=== PATIENT | female | born 1945 | race Caucasian/White ===

== ENCOUNTER 2019-12-18 14:27 | Inpatient (IN) | payer MEDICARE, OTHER ==
[~2019-12-18] VITALS: Ht 134.6 cm; Wt 65.8 kg
--- NOTE | 2019-12-18 14:40 | NUR ---
Pt BIB private EMS from [facility], reports Pt has SI (plan to OD or run into traffic); pt was negative Covid swab yesterday, c/o cough but did not cough at other hospital. Pt has SI (OD, traffic, or cut her wrists) but denies HI, AH and VH. Pt also c/o periumbilical ABD pain w/nausea, migraine PELAEZ, CP, cough and SOB, no distress noted.
--- NOTE | 2019-12-18 15:07 | NUR ---
Art on his way to do PET eval.
[2019-12-18] MEDS ORDERED: LEVO25TA9 PO (15:15)
[2019-12-18] MEDS ORDERED: HALO5TAB PO (15:15)
[2019-12-18] MEDS ORDERED: BUDE10.2 INH (15:15)
[2019-12-18] MEDS ORDERED: POLY15DR27 EACHEYE (15:15)
[2019-12-18] MEDS ORDERED: ALBU18HF2 INH (15:15)
[2019-12-18] MEDS ORDERED: CHOL4PAC3 PO (15:15)
[2019-12-18] MEDS ORDERED: DIPH25CA83 PO (15:15)
[2019-12-18] MEDS ORDERED: DILT180C90 PO (15:15)
[2019-12-18] MEDS ORDERED: diphenhydrAMINE 25 MG CAP PO ONE ×2 (16:45)
--- NOTE | 2019-12-18 18:48 | NUR ---
Admitting Notes: Admitting this 74 Y female patient appears to be anxious and verbalizes shes not feeling well and would start to cry, patient cooperative and calm, assisted to her room VS Bp 161/104 P93 T 97, patients weigh 141 lbs, endorsed to next shift for the admission
--- NOTE | 2019-12-18 20:10 | NUR ---
Received patient in bed. AAO x3. No acute distress or SOB was noted. Calm and cooperative. Pleasant upon approach. Compliant with medication. No SI at this time, but she had suicidal plan in the past. No behavioral issues. Mood depressed. She feels hopelessness. Safety measures and suicidal precaution maintained. Bed in low and locked position. Room free from clutters. Continue to monitor.
[2019-12-18 20:32] VITALS: BP 137/94
[2019-12-18] MEDS: LORAZEPAM 0.5 MG TABLET PO PRN (21:05)
[2019-12-18] MEDS: MAGNESIUM HYDROXIDE 30 ML LIQUID UDC PO PRN (21:05)
--- NOTE | 2019-12-18 21:15 | NUR ---
Patient felt anxiety. Ativan 0.5 mg was administered and well tolerated. Continue to monitoe.
[2019-12-18] MEDS: ZOLPIDEM 5 MG TABLET PO PRN (22:03)
[2019-12-18] MEDS ORDERED: POLYVINYL ALCOHOL OPHT DROPS 15 ML BOTTLE EACHEYE SCH (22:15)
[2019-12-18] MEDS ORDERED: ALBUTEROL SULFATE 8 GM HFA.AER.AD INH SCH (22:15)
--- NOTE | 2019-12-18 22:15 | NUR ---
Patient complained of insomnia. Ambien 5 mg was given and well tolerated. Continue to monitor.
[2019-12-19 06:51] LABS: *BILIRUBIN,URIN NEGATIVE (NEGATIVE); *BLOOD, URINE NEGATIVE (NEGATIVE); *CLARITY,URINE CLEAR (CLEAR); *COLOR,URINE YELLOW (YELLOW); *KETONES,URINE NEGATIVE (NEGATIVE); *UROBILINOGEN,URINE 0.2 E.U./dl (NORMAL); LEUKOCYTE ESTERASE ,URINE TRACE (NEGATIVE); NITRITE, URINE NEGATIVE (NEGATIVE); PH,URINE 7.5 (5.0-8.0); UGLUCOSE NEGATIVE (NEGATIVE)
[2019-12-19 07:19] LABS: BACTERIA,URINE FEW /HPF (NONE SEEN); SQUAMOUS EPITHELIAL CELL,UR MANY /HPF (NONE SEEN)
[2019-12-19 07:23] LABS: MUCUS,URINE NONE SEEN /LPF (0-FEW); RBC,URINE NONE SEEN /HPF (0-3)
[2019-12-19 07:30] VITALS: BP 140/99
[2019-12-19] MEDS ORDERED: ALBUTEROL SULFATE 8 GM HFA.AER.AD INH SCH (07:30)
[2019-12-19 07:39] LABS: BASOPHILS # (AUTO) 0.1 K/uL (0.0-8.0); BASOPHILS % (AUTO) 1.3 % (0.0-2.0); EOSINOPHILS # (AUTO) 0.3 K/uL (0.0-0.7); EOSINOPHILS % (AUTO) 3.8 % (0.0-7.0); HEMATOCRIT 38.9 % (31.2-41.9); HEMOGLOBIN 12.7 g/dL (10.9-14.3); LYMPHOCYTES # (AUTO) 2.4 K/uL (20.0-40.0); LYMPHOCYTES % (AUTO) 30.3 % (20.5-51.5); MEAN CORPUSCULAR HEMOGLOBIN 25.6 uug (24.7-32.8); MEAN CORPUSCULAR HGB CONC 33 g/dL (32.3-35.6); MEAN CORPUSCULAR VOLUME 78.1 fL (75.5-95.3); MONOCYTES # (AUTO) 0.7 K/uL (2.0-10.0); MONOCYTES % (AUTO) 9.4 % (0.0-11.0); NEUTROPHILS # (AUTO) 4.4 K/uL (1.8-8.9); NEUTROPHILS % (AUTO) 55.2 % (38.5-71.5); PLATELET COUNT (AUTO) 521 K/uL (179-408); RED BLOOD CELL COUNT(AUTO) 4.98 MIL/uL (3.63-4.92); WHITE BLOOD COUNT (AUTO) 7.9 K/uL (3.8-11.8)
[2019-12-19] MEDS: FLUTICASONE/VILANTEROL 1 EACH BLST.W.DEV INH SCH (07:55)
[2019-12-19] MEDS: LEVOTHYROXINE SODIUM 25 MCG TABLET PO SCH (07:55)
[2019-12-19] MEDS: LORAZEPAM 0.5 MG TABLET PO PRN (07:55)
[2019-12-19] MEDS: POLYVINYL ALCOHOL OPHT DROPS 15 ML BOTTLE EACHEYE PRN ×2 (07:56→13:34)
[2019-12-19] MEDS: DILTIAZEM HCL CD 180 MG CAP.SR.24H PO SCH (07:56)
[2019-12-19 08:32] LABS: BILIRUBIN,TOTAL 0.5 mg/dL (0.2-1.0); CREATININE 0.9 mg/dL (0.6-1.3); POTASSIUM 4.6 mmol/L (3.5-5.1); TOTAL PROTEIN, SERUM 7.2 g/dL (6.4-8.2)
[2019-12-19] MEDS: CHOLESTYRAMINE/ASPARTAME 4 G/PKT PACKET PO SCH ×2 (08:43→16:38)
[2019-12-19] MEDS ORDERED: LORAZEPAM 0.5 MG TABLET PO PRN (09:30)
[2019-12-19 09:49] LABS: THYROID STIMULATING HORMONE 1.321 mIU/mL (0.358-3.740)
[2019-12-19] MEDS: MAGNESIUM HYDROXIDE 30 ML LIQUID UDC PO PRN (10:06)
[2019-12-19] MEDS: VENLAFAXINE XR 37.5 MG CAP.SR.24H PO SCH (10:52)
[2019-12-19 11:04] LABS: MAGNESIUM 2.2 mg/dL (1.8-2.4); PHOSPHOROUS 4.1 mg/dL (2.5-4.9)
--- NOTE | 2019-12-19 11:20 | NUR ---
Received patient in the day room this am. B/p noted elevated. Am medications given without difficulty, including one for blood pressure. Patient appears depressed and anxious. Multiple requests for things today. Patient is present in the group with minimal participation. Patient denied SI when asked but continuing with SI precautions. Monitoring for safety, SI, isolation and anxiety. Grinder Lap was able to engage patient in meaningful conversation.
[2019-12-19] MEDS: SULFAMETH/TRIMETH 800/160 MG TABLET PO SCH ×2 (12:54→20:12)
[2019-12-19] MEDS: LORAZEPAM 1 MG TABLET PO PRN ×2 (13:33→18:23)
[2019-12-19] MEDS: BISACODYL 10 MG SUPP.RECT RC PRN (13:33)
[2019-12-19] MEDS ORDERED: CEphaleXIN 250 MG CAPSULE PO SCH (14:00)
[2019-12-19 15:09] VITALS: BP 136/88
--- NOTE | 2019-12-19 15:17 | NUR ---
Jack Winder Individual Therapy: plant nursery worker met with pt for brief counseling to address patient's suicidal ideation. Patient states that she is depressed and present with low mood and flat affect. Patient shared that she has difficulty sharing her feelings, however after encouragement from this health technical writer patient was able to engage in a meaningful conversation. Patient appears to victimize herself and focus only on the negative aspects of her life. Patient states that this was the month her father killed her mother and committed suicide. Patient shares she is unhappy with where she is living and that it is a "pigstyle". This health technical writer provided empathy and support, and offered to help the patient seek alternate placement such as an Independent Living. Patient presents hesitant to accept a new living placement, and states she will "think about it". This health technical writer will remain available to the patient and continue to provide ongoing support.
[2019-12-19] MEDS: ACETAMINOPHEN 325 MG TABLET PO PRN (18:44)
[2019-12-19] MEDS: ATORVASTATIN 20 MG TABLET PO SCH (20:12)
[2019-12-19] MEDS: DOCUSATE SODIUM 100 MG CAPSULE PO SCH (20:12)
[2019-12-19] MEDS: QUETIAPINE FUMARATE 100 MG TABLET PO SCH (20:13)
[2019-12-19 21:00] VITALS: BP 153/94
--- NOTE | 2019-12-20 03:02 | NUR ---
GPS: PT RECEIVED UP IN ACTIVITY ROOM WITH PEERS CONVERSING. PT SEEM ANXIOUS WITH THINGS AND WANT IT DONE RIGHT AWAY. PT C/O ROOMMATE AND SAID SHE CAN NOT SLEEP WHEN WINDOW BLINDS ARE NOT CLOSED. CALLED MAINTENANCE AND BLINDS WERE FIXED. PT COOPERATIVE WITH ROUTINE MEDICATIONS, DENIED PAIN OR DISCOMFORT. BREATHING EVEN WITH NO SOB NOTED. PT C/O NOT ABLE TO SLEEP AND WANTED PRN SLEEPING AID AT ABOUT 22OO. AMBIEN 5MG TAKEN FROM [facility] BUT PT IMMEDIATELY WENT BACK TO BED AND FALL BACK TO DEEP SLEEP. WAS NOT ABLE TO AROUSE WITH NAME CALLING, PT UP TILL NOW 0315 STILL SLEEPING WITH BREATHING EVEN. WILL CONTINUE TO MONITOR AND Q/15MINS HEAD CHECK ONGOING.
[2019-12-20] MEDS: MAG HYDROX/AL HYDROX/SIMETH 30 ML LIQUID UDC PO PRN (03:30)
[2019-12-20] MEDS: LEVOTHYROXINE SODIUM 25 MCG TABLET PO SCH (07:11)
[2019-12-20 07:30] VITALS: BP 129/82
[2019-12-20] MEDS: SULFAMETH/TRIMETH 800/160 MG TABLET PO SCH ×2 (08:07→20:41)
[2019-12-20] MEDS: LORAZEPAM 1 MG TABLET PO PRN ×3 (08:07→18:58)
[2019-12-20] MEDS: FLUTICASONE/VILANTEROL 1 EACH BLST.W.DEV INH SCH (08:07)
[2019-12-20] MEDS: POLYVINYL ALCOHOL OPHT DROPS 15 ML BOTTLE EACHEYE PRN ×2 (08:08→17:16)
[2019-12-20] MEDS: DILTIAZEM HCL CD 180 MG CAP.SR.24H PO SCH (08:08)
[2019-12-20] MEDS: VENLAFAXINE XR 37.5 MG CAP.SR.24H PO SCH (08:08)
[2019-12-20] MEDS: CHOLESTYRAMINE/ASPARTAME 4 G/PKT PACKET PO SCH ×2 (08:09→17:17)
--- NOTE | 2019-12-20 14:28 | NUR ---
INITIAL DISCHARGE PLAN: Pt currently resides in a boarding facility; [facility] located at [address] [place] [id number]; [phone].Pt states that she is very unhappy living there. Pt is open to exploring placement, if available. SW will work with pt, pt family, and MD to form a safe and proper discharge plan.
[2019-12-20 16:00] VITALS: BP 127/77
--- NOTE | 2019-12-20 16:06 | NUR ---
Received patient this am in the coombs. Patient expressed being " Anxious" and requested medication. Patient is depressed and has some " Constipation" problems , which have been addressed. No behavioral issues noted. Patient ambulatory , gait steady. Medication compliant. Patient denies feelings of SI. Continuing to monitor for safety and anxiety escalation.
[2019-12-20] MEDS: DOCUSATE SODIUM 100 MG CAPSULE PO SCH (20:41)
[2019-12-20] MEDS: ATORVASTATIN 20 MG TABLET PO SCH (20:41)
[2019-12-20] MEDS: QUETIAPINE FUMARATE 100 MG TABLET PO SCH (20:41)
[2019-12-20 21:15] VITALS: BP 138/78
[2019-12-21] MEDS: LEVOTHYROXINE SODIUM 25 MCG TABLET PO SCH (06:02)
--- NOTE | 2019-12-21 06:03 | NUR ---
Patient slept a total of 8.15 hours.
[2019-12-21] MEDS: LORAZEPAM 1 MG TABLET PO PRN ×3 (06:33→23:31)
[2019-12-21 07:30] VITALS: BP 135/79
[2019-12-21] MEDS: VENLAFAXINE XR 37.5 MG CAP.SR.24H PO SCH (08:45)
[2019-12-21] MEDS: SULFAMETH/TRIMETH 800/160 MG TABLET PO SCH ×2 (08:45→20:34)
[2019-12-21] MEDS: DILTIAZEM HCL CD 180 MG CAP.SR.24H PO SCH (08:46)
[2019-12-21] MEDS: FLUTICASONE/VILANTEROL 1 EACH BLST.W.DEV INH SCH (08:46)
[2019-12-21] MEDS: CHOLESTYRAMINE/ASPARTAME 4 G/PKT PACKET PO SCH ×2 (08:50→17:51)
[2019-12-21] MEDS: POLYVINYL ALCOHOL OPHT DROPS 15 ML BOTTLE EACHEYE PRN ×2 (08:52→16:13)
--- NOTE | 2019-12-21 12:55 | NUR ---
Social Work Firearms Report ([employer]J): Bass String Winder completed and submitted a [employer] firearms report for 5150 danger to self certification. A copy of report has been placed in patient chart.
--- NOTE | 2019-12-21 14:43 | NUR ---
Gps/Supervisor Shuttle Fitting-Emotionally labile , noted episodes of crying spells. Compliant with routine med. verbalized feelings and needs. Had been interacting with her roommate . Anxious, prn xanax 0.5 mg 1 tab po was given ,verbalized she's had been taking xanax for many years , and it helps her go through her difficult times, gets the days tolerable per pt. She also verbalized worries about her debilitated r/t parkinson disease. Addendum: 12/21/19 at 1449 by KYLIE PARIKH LVN Error charted on a wrong patient.
--- NOTE | 2019-12-21 14:49 | NUR ---
Gps/Cushion Filler- Complained she does not get along with her roommate, requesting if she can be moved to another room.
--- NOTE | 2019-12-21 15:00 | NUR ---
Gps?customer experience strategist- Encouraged to stay in her group therapy, Complaint with her routine meds. Rashes on her upper back cream applied as ordered. . Stayed in the dinning room during meals.
[2019-12-21 16:00] VITALS: BP 140/76
[2019-12-21 20:00] VITALS: BP 120/78
[2019-12-21] MEDS: QUETIAPINE FUMARATE 100 MG TABLET PO SCH (20:34)
[2019-12-21] MEDS: ATORVASTATIN 20 MG TABLET PO SCH (20:34)
[2019-12-21] MEDS: DOCUSATE SODIUM 100 MG CAPSULE PO SCH (20:34)
[2019-12-21] MEDS: ZOLPIDEM 5 MG TABLET PO PRN (21:42)
[2019-12-22] MEDS: LEVOTHYROXINE SODIUM 25 MCG TABLET PO SCH (06:47)
[2019-12-22] MEDS: LORAZEPAM 1 MG TABLET PO PRN ×3 (06:47→18:39)
[2019-12-22] MEDS: POLYVINYL ALCOHOL OPHT DROPS 15 ML BOTTLE EACHEYE PRN ×3 (07:00→12:34)
[2019-12-22 07:30] VITALS: BP 130/75
[2019-12-22] MEDS: SULFAMETH/TRIMETH 800/160 MG TABLET PO SCH ×2 (08:59→21:12)
[2019-12-22] MEDS: VENLAFAXINE XR 37.5 MG CAP.SR.24H PO SCH (08:59)
[2019-12-22] MEDS: DILTIAZEM HCL CD 180 MG CAP.SR.24H PO SCH (08:59)
[2019-12-22] MEDS: CHOLESTYRAMINE/ASPARTAME 4 G/PKT PACKET PO SCH ×2 (09:01→16:36)
[2019-12-22] MEDS: FLUTICASONE/VILANTEROL 1 EACH BLST.W.DEV INH SCH (09:01)
--- NOTE | 2019-12-22 10:58 | NUR ---
Gps/Specialist Wound Care- Verbalized feelings of being anxious, claimed she didnt sleep well last night . Stayed in the dinning room during breakfast time. Continue to participate in her group therapy.
[2019-12-22 15:16] VITALS: BP 123/69
[2019-12-22] MEDS: diphenhydrAMINE 1% CREAM 28.3 GM TUBE TP PRN (18:39)
[2019-12-22 20:13] VITALS: BP 144/75
[2019-12-22] MEDS: QUETIAPINE FUMARATE 100 MG TABLET PO SCH (21:11)
[2019-12-22] MEDS: DOCUSATE SODIUM 100 MG CAPSULE PO SCH (21:12)
[2019-12-22] MEDS: ATORVASTATIN 20 MG TABLET PO SCH (21:12)
[2019-12-23] MEDS: ZOLPIDEM 5 MG TABLET PO PRN ×2 (01:12→22:32)
[2019-12-23] MEDS: LORAZEPAM 1 MG TABLET PO PRN ×3 (06:07→19:33)
[2019-12-23 07:30] VITALS: BP 125/87
[2019-12-23] MEDS: POLYVINYL ALCOHOL OPHT DROPS 15 ML BOTTLE EACHEYE PRN ×2 (08:17→17:23)
[2019-12-23] MEDS: VENLAFAXINE XR 37.5 MG CAP.SR.24H PO SCH (08:19)
[2019-12-23] MEDS: DILTIAZEM HCL CD 180 MG CAP.SR.24H PO SCH (08:19)
[2019-12-23] MEDS: SULFAMETH/TRIMETH 800/160 MG TABLET PO SCH ×2 (08:19→20:42)
[2019-12-23] MEDS: FLUTICASONE/VILANTEROL 1 EACH BLST.W.DEV INH SCH (08:20)
[2019-12-23] MEDS: CHOLESTYRAMINE/ASPARTAME 4 G/PKT PACKET PO SCH ×2 (08:27→17:24)
[2019-12-23] MEDS: LEVOTHYROXINE SODIUM 25 MCG TABLET PO SCH (09:21)
[2019-12-23] MEDS: diphenhydrAMINE 25 MG CAP PO PRN ×2 (12:09→19:33)
--- NOTE | 2019-12-23 15:44 | NUR ---
GPS: PT RECEIVED IN BED AWAKE, RESPONSIVE VERBALLY. DENIED GENERAL PAIN OR DISCOMFORT. PT WAS UP AND ATE BREAKFAST IN ROOM. PARTICIPATED IN GROUP ACTIVITY WITH PEERS. COMPLIANT WITH ROUTINE MEDICATIONS AND TOLERATED WELL. PT NOTED WITH RAPID MOOD SWINGS FROM TALKING VERY FAST AND PRESSURE TO QUIET OR CHANGING LOCATIONS VERY FREQUENT AND FAST. PT ALSO NOTED SPEAKING FOR OTHERS MOST TIMES, WILL VOICE OUT FEELING FOR OTHERS AND DEMAND A RESPOND IMMEDIATELY. PT WAS ENCOURAGED TO WAIT AND REDIRECTED WITH NOTED EFFECTIVE ON BEHAVIOR. PT ABOUT 1209 C/O ANXIOUSNESS AND REQUESTED FOR ATIVAN PRN. MEDICATION GIVEN AND PT ALSO REQUESTED BENADRYL CREAM DUE TO ITCHING. APPLIED AND MONITOR. AT THIS TIME PT IS RESTING IN BED, ATIVAN SEEM EFFECTIVE, NO SOB NOTED, WILL CONTINUE MONITOR.
[2019-12-23 16:00] VITALS: BP 116/70
[2019-12-23] MEDS: ALBUTEROL SULFATE 2.5 MG/3 ML NEBU NEB PRN (16:51)
[2019-12-23] MEDS: diphenhydrAMINE 1% CREAM 28.3 GM TUBE TP PRN (19:33)
[2019-12-23 20:40] VITALS: BP 116/76
[2019-12-23] MEDS: QUETIAPINE FUMARATE 100 MG TABLET PO SCH (20:40)
[2019-12-23] MEDS: DOCUSATE SODIUM 100 MG CAPSULE PO SCH (20:42)
[2019-12-23] MEDS: ATORVASTATIN 20 MG TABLET PO SCH (20:42)
[2019-12-24] MEDS: LEVOTHYROXINE SODIUM 25 MCG TABLET PO SCH (06:04)
[2019-12-24] MEDS: LORAZEPAM 1 MG TABLET PO PRN ×3 (06:26→19:29)
--- NOTE | 2019-12-24 06:38 | NUR ---
Received Pt in the day room watching TV. A+Ox3, mood is irritable and labile. Pt is hyper-somatic and needy with medications. Pt is intrusive with other Pt's care and personal business, has poor boundaries. Frequent redirection provided. Denies SI/HI and verbally contracts for safety. Compliant with medications. VS stable, denies pain. Ativan 1mg administered for anxiety at 1933 and 0626 per Pt request. Refused AM shower.
[2019-12-24 07:30] VITALS: BP 139/70
[2019-12-24] MEDS: DILTIAZEM HCL CD 180 MG CAP.SR.24H PO SCH (08:14)
[2019-12-24] MEDS: VENLAFAXINE XR 37.5 MG CAP.SR.24H PO SCH (08:14)
[2019-12-24] MEDS: FLUTICASONE/VILANTEROL 1 EACH BLST.W.DEV INH SCH (08:15)
[2019-12-24] MEDS: CHOLESTYRAMINE/ASPARTAME 4 G/PKT PACKET PO SCH ×2 (08:15→17:01)
[2019-12-24] MEDS: POLYVINYL ALCOHOL OPHT DROPS 15 ML BOTTLE EACHEYE PRN ×2 (08:16→17:00)
[2019-12-24 15:28] VITALS: BP 116/94
[2019-12-24] MEDS: diphenhydrAMINE 25 MG CAP PO PRN (17:00)
--- NOTE | 2019-12-24 19:01 | NUR ---
GPS: PT RESPONSIVE VERBALLY. DENIED GENERAL PAIN OR DISCOMFORT. PT WAS UP AND ATE BREAKFAST IN ROOM. PARTICIPATED IN GROUP ACTIVITY WITH PEERS. COMPLIANT WITH ROUTINE MEDICATIONS AND TOLERATED WELL. PT STILL NOTED WITH RAPID MOOD SWINGS FROM TALKING VERY FAST AND PRESSURE TO QUIET OR CHANGING LOCATIONS VERY FREQUENT AND FAST AND VERY DEMANDING. PT WAS ENCOURAGED AND REDIRECTED WITH NOTED EFFECTIVE ON BEHAVIOR. ANXIOUSNESS AND REQUESTED FOR ATIVAN PRN. MEDICATION GIVEN AND PT ALSO REQUESTED BENADRYL CREAM DUE TO ITCHING AND BENADRYL PO GIVEN FOR ITCHING, OFFER SHOWER BUT REFUSED. PT RESTING AND CONTINUE MONITOR.
[2019-12-24 20:17] VITALS: BP 163/90
[2019-12-24] MEDS: DOCUSATE SODIUM 100 MG CAPSULE PO SCH (20:30)
[2019-12-24] MEDS: ATORVASTATIN 20 MG TABLET PO SCH (20:30)
[2019-12-24] MEDS: QUETIAPINE FUMARATE 100 MG TABLET PO SCH (20:31)
[2019-12-24] MEDS: ZOLPIDEM 5 MG TABLET PO PRN (21:07)
[2019-12-25] MEDS: LEVOTHYROXINE SODIUM 25 MCG TABLET PO SCH (06:06)
[2019-12-25] MEDS: LORAZEPAM 1 MG TABLET PO PRN ×2 (06:14→18:50)
[2019-12-25 07:30] VITALS: BP 149/79
[2019-12-25] MEDS: FLUTICASONE/VILANTEROL 1 EACH BLST.W.DEV INH SCH (08:56)
[2019-12-25] MEDS: POLYVINYL ALCOHOL OPHT DROPS 15 ML BOTTLE EACHEYE PRN (08:57)
[2019-12-25] MEDS: CHOLESTYRAMINE/ASPARTAME 4 G/PKT PACKET PO SCH ×2 (08:58→17:14)
[2019-12-25] MEDS: DILTIAZEM HCL CD 180 MG CAP.SR.24H PO SCH (08:59)
[2019-12-25] MEDS ORDERED: VENLAFAXINE XR 37.5 MG CAP.SR.24H PO SCH (09:00)
[2019-12-25] MEDS: VENLAFAXINE XR 75 MG TAB.ER.24H PO SCH (09:01)
[2019-12-25] MEDS: MAGNESIUM HYDROXIDE 30 ML LIQUID UDC PO PRN (10:11)
[2019-12-25] MEDS: GABAPENTIN 100 MG CAPSULE PO SCH ×3 (10:11→17:14)
[2019-12-25] MEDS: diphenhydrAMINE 25 MG CAP PO PRN ×2 (10:11→18:50)
--- NOTE | 2019-12-25 13:47 | NUR ---
Received patient this am, awake, alert and oriented. Multiple requests for medications, food items, phone. Patient very needy and gets angry if requests are not met. Redirection and meaningful conversation provided. Continuing to monitor for safety and behavior escalation. Patent denies SI today but admits to being "Very depressed." Suicide precautions are in place and encouraging patient to verbalize feelings.
[2019-12-25 16:00] VITALS: BP 140/92
[2019-12-25] MEDS: QUETIAPINE FUMARATE 200 MG TABLET PO SCH (20:42)
[2019-12-25] MEDS: ATORVASTATIN 20 MG TABLET PO SCH (20:42)
[2019-12-25] MEDS: DOCUSATE SODIUM 100 MG CAPSULE PO SCH (20:42)
[2019-12-25 20:57] VITALS: BP 125/72
[2019-12-25] MEDS: ACETAMINOPHEN 325 MG TABLET PO PRN (20:57)
[2019-12-25] MEDS ORDERED: QUETIAPINE FUMARATE 100 MG TABLET PO SCH (21:00)
[2019-12-26] MEDS: LEVOTHYROXINE SODIUM 25 MCG TABLET PO SCH (06:03)
--- NOTE | 2019-12-26 06:03 | NUR ---
PT SLEPT 7 HOURS. PT IN NO ACUTE DISTRESS. PRESCRIBED MEDICATION GIVEN AND PT TOLERATED IT WELL. PT NEEDY AND WANTS HER MEDICATION ON TIME. PT GIVEN TYLENOL AT 2057H PER PT REQUEST TO HELP HER SLEEP. SAFETY AND COMFORT PROVIDED. ALL NEEDS ARE MET. WILL ENDORSE TO INCOMING NURSE FOR CONTINUITY OF CARE.
[2019-12-26 07:30] VITALS: BP 140/86
[2019-12-26] MEDS: POLYVINYL ALCOHOL OPHT DROPS 15 ML BOTTLE EACHEYE PRN ×2 (08:14→16:01)
[2019-12-26] MEDS: BISACODYL 10 MG SUPP.RECT RC PRN (08:14)
[2019-12-26] MEDS: DILTIAZEM HCL CD 180 MG CAP.SR.24H PO SCH (08:14)
[2019-12-26] MEDS: VENLAFAXINE XR 75 MG TAB.ER.24H PO SCH (08:14)
[2019-12-26] MEDS: GABAPENTIN 100 MG CAPSULE PO SCH ×3 (08:14→16:01)
[2019-12-26] MEDS: LORAZEPAM 1 MG TABLET PO PRN ×2 (08:14→19:36)
[2019-12-26] MEDS: CHOLESTYRAMINE/ASPARTAME 4 G/PKT PACKET PO SCH ×2 (08:15→16:01)
[2019-12-26] MEDS: FLUTICASONE/VILANTEROL 1 EACH BLST.W.DEV INH SCH (08:15)
--- NOTE | 2019-12-26 14:41 | NUR ---
Loading Machine Operator Helper Individual Therapy: bee worker met with pt for brief counseling to address patient's suicidal ideation. Patient continues to presents with depressed mood and blunted affect. Patient is guarded and withdrawn. Patient stated that she has been joining group but "doesn't feel like sharing too much" with her peers. SW assessed patient for suicidal ideation. Patient denies suicidal ideation, however states that she is "sad" and does not think it is every going to change. SW provided positive reinforcement and empathetic listening. bee worker encouraged patient to interact with her peers and be able to relate with others in order to not feel "alone". Patient stated she will "try".
[2019-12-26] MEDS: diphenhydrAMINE 25 MG CAP PO PRN ×2 (14:48→21:01)
--- NOTE | 2019-12-26 15:18 | NUR ---
Received patient this am, awake and alert, but anxious. Patient appears to be depressed and states " I do not feel well today... mentally or physically ". Patient expressed feeling " Hopeless". Laserist provided active listening and positive meaningful conversation. Encouragement given with positive response from patient. Patient denies SI and HI. Continuing to monitor for safety, SI and anxiety.
[2019-12-26 16:00] VITALS: BP 126/83
[2019-12-26 20:02] VITALS: BP 141/88
[2019-12-26] MEDS: DOCUSATE SODIUM 100 MG CAPSULE PO SCH (21:00)
[2019-12-26] MEDS: QUETIAPINE FUMARATE 200 MG TABLET PO SCH (21:00)
[2019-12-26] MEDS: ATORVASTATIN 20 MG TABLET PO SCH (21:00)
[2019-12-27] MEDS: LEVOTHYROXINE SODIUM 25 MCG TABLET PO SCH (06:21)
[2019-12-27 07:30] VITALS: BP 139/96
[2019-12-27] MEDS: FLUTICASONE/VILANTEROL 1 EACH BLST.W.DEV INH SCH (08:05)
[2019-12-27] MEDS: VENLAFAXINE XR 75 MG TAB.ER.24H PO SCH (08:05)
[2019-12-27] MEDS: GABAPENTIN 100 MG CAPSULE PO SCH ×3 (08:06→17:15)
[2019-12-27] MEDS: POLYVINYL ALCOHOL OPHT DROPS 15 ML BOTTLE EACHEYE PRN ×2 (08:06→21:00)
[2019-12-27] MEDS: LORAZEPAM 1 MG TABLET PO PRN ×2 (08:06→21:00)
[2019-12-27] MEDS: DILTIAZEM HCL CD 180 MG CAP.SR.24H PO SCH (08:07)
[2019-12-27] MEDS: CHOLESTYRAMINE/ASPARTAME 4 G/PKT PACKET PO SCH ×2 (08:19→17:00)
[2019-12-27] MEDS: BISACODYL 10 MG SUPP.RECT RC PRN (10:20)
[2019-12-27] MEDS: diphenhydrAMINE 25 MG CAP PO PRN ×2 (11:05→21:00)
--- NOTE | 2019-12-27 13:14 | NUR ---
Social Work Note: Social work received a phone call from [facility] and spoke with Tabby ([phone]) who stated that she will work on patient's transportation. Per Tabby, she knows that patient will be discharged 12/29. Tabby will call back this promotion writer or TERESA Baig.
[2019-12-27] MEDS: diphenhydrAMINE 1% CREAM 28.3 GM TUBE TP PRN (13:45)
[2019-12-27 16:04] VITALS: BP 126/80
[2019-12-27 20:04] VITALS: BP 136/81
[2019-12-27] MEDS: ATORVASTATIN 20 MG TABLET PO SCH (20:19)
[2019-12-27] MEDS: DOCUSATE SODIUM 100 MG CAPSULE PO SCH (20:19)
[2019-12-27] MEDS: QUETIAPINE FUMARATE 200 MG TABLET PO SCH (20:19)
[2019-12-27] MEDS: ALBUTEROL SULFATE 2.5 MG/3 ML NEBU NEB PRN (20:42)
--- NOTE | 2019-12-28 01:10 | NUR ---
Patient received in the day room watching TV. A+Ox3, Patient is labile, easily irritable, needy, and demanding. Patient complaint with medication. Safe environment provided, frequent rounding, and clutter free environment. Bed in lowest position, bed locked,and bed alarm on while in bed.
[2019-12-28] MEDS: LEVOTHYROXINE SODIUM 25 MCG TABLET PO SCH (06:45)
[2019-12-28 07:30] VITALS: BP 145/84
[2019-12-28] MEDS: GABAPENTIN 100 MG CAPSULE PO SCH (09:06)
[2019-12-28] MEDS: VENLAFAXINE XR 75 MG TAB.ER.24H PO SCH (09:06)
[2019-12-28] MEDS: FLUTICASONE/VILANTEROL 1 EACH BLST.W.DEV INH SCH (09:06)
[2019-12-28] MEDS: DILTIAZEM HCL CD 180 MG CAP.SR.24H PO SCH (09:07)
[2019-12-28] MEDS: CHOLESTYRAMINE/ASPARTAME 4 G/PKT PACKET PO SCH ×2 (09:08→16:58)
[2019-12-28] MEDS: POLYVINYL ALCOHOL OPHT DROPS 15 ML BOTTLE EACHEYE PRN (09:09)
[2019-12-28] MEDS: ALBUTEROL SULFATE 2.5 MG/3 ML NEBU NEB PRN (12:08)
[2019-12-28] MEDS: MAG HYDROX/AL HYDROX/SIMETH 30 ML LIQUID UDC PO PRN (12:39)
[2019-12-28] MEDS: GABAPENTIN 300 MG CAPSULE PO SCH ×2 (12:57→16:57)
--- NOTE | 2019-12-28 12:58 | NUR ---
Gps?cook barbecue- Noted patient extremely anxious, needed breathing tx right away per patient, adequate 02 sat. when checked (96% room air)) staye in the dinning room during her meals and activity. Also complained upset stomach, mylanta 30 ml was given po.,Patient complained she thinks she aspirated last night, afebrile, had breathing treatment, afebrile.
[2019-12-28] MEDS ORDERED: GABAPENTIN 100 MG CAPSULE PO SCH (13:00)
[2019-12-28 16:00] VITALS: BP 155/82
--- NOTE | 2019-12-28 16:00 | NUR ---
Gps/Hod Carrier- Patient claimed she's feeling much better, adequate 0xegen saturations, no SOB no coughing noted, claimed she felt after right after her HHN by RT. Stayed in the activity room most of the day., attended group therapy.
[2019-12-28 20:00] VITALS: BP 133/86
[2019-12-28] MEDS: LORAZEPAM 1 MG TABLET PO PRN (20:14)
[2019-12-28] MEDS: DOCUSATE SODIUM 100 MG CAPSULE PO SCH (20:26)
[2019-12-28] MEDS: QUETIAPINE FUMARATE 200 MG TABLET PO SCH (20:26)
[2019-12-28] MEDS: ATORVASTATIN 20 MG TABLET PO SCH (20:26)
[2019-12-28] MEDS: diphenhydrAMINE 25 MG CAP PO PRN (20:27)
[2019-12-29] MEDS: LEVOTHYROXINE SODIUM 25 MCG TABLET PO SCH (06:02)
[2019-12-29 07:30] VITALS: BP 133/75
[2019-12-29] MEDS: CHOLESTYRAMINE/ASPARTAME 4 G/PKT PACKET PO SCH ×2 (09:00→17:00)
[2019-12-29] MEDS: GABAPENTIN 300 MG CAPSULE PO SCH ×3 (09:09→17:11)
[2019-12-29] MEDS: VENLAFAXINE XR 75 MG TAB.ER.24H PO SCH (09:09)
[2019-12-29] MEDS: DILTIAZEM HCL CD 180 MG CAP.SR.24H PO SCH (09:09)
[2019-12-29] MEDS: POLYVINYL ALCOHOL OPHT DROPS 15 ML BOTTLE EACHEYE PRN ×2 (09:10→17:10)
[2019-12-29] MEDS: FLUTICASONE/VILANTEROL 1 EACH BLST.W.DEV INH SCH (09:11)
[2019-12-29] MEDS: diphenhydrAMINE 25 MG CAP PO PRN ×3 (09:18→23:35)
[2019-12-29] MEDS: LORAZEPAM 1 MG TABLET PO PRN ×2 (10:12→23:35)
[2019-12-29] MEDS: diphenhydrAMINE 1% CREAM 28.3 GM TUBE TP PRN (13:30)
--- NOTE | 2019-12-29 15:22 | NUR ---
Social Work Note: Social work followed up with [facility] and spoke with Tabby ([phone]) who stated that she is still working on the transportation. tank worker also spoke with Adonis, who asked if the patient would be safe to go with a bus back home upon discharge, however, this health science writer stated that a different form of transportation would be safer as the distance if quite far. Adonis stated he will arrange and call this health science writer back.
--- NOTE | 2019-12-29 15:25 | NUR ---
Trolley Car Operator Individual Therapy: picking table worker met with pt for brief counseling to address patient's suicidal ideation. Patient continues to presents with depressed mood and blunted affect. Patient did not want to engage in a conversation at this time and asked this personal lines underwriter to go away. SW will continue to remain available for the patient and provide ongoing support.
[2019-12-29 15:42] VITALS: BP 118/64
[2019-12-29] MEDS: MAG HYDROX/AL HYDROX/SIMETH 30 ML LIQUID UDC PO PRN (17:19)
[2019-12-29 20:00] VITALS: BP 121/67
[2019-12-29] MEDS: DOCUSATE SODIUM 100 MG CAPSULE PO SCH (20:43)
[2019-12-29] MEDS: ATORVASTATIN 20 MG TABLET PO SCH (20:44)
[2019-12-29] MEDS: QUETIAPINE FUMARATE 200 MG TABLET PO SCH (20:44)
[2019-12-30] MEDS: LEVOTHYROXINE SODIUM 25 MCG TABLET PO SCH (06:17)
[2019-12-30 07:30] VITALS: BP 121/75
[2019-12-30] MEDS: FLUTICASONE/VILANTEROL 1 EACH BLST.W.DEV INH SCH (08:37)
[2019-12-30] MEDS: VENLAFAXINE XR 75 MG TAB.ER.24H PO SCH (08:37)
[2019-12-30] MEDS: CHOLESTYRAMINE/ASPARTAME 4 G/PKT PACKET PO SCH ×2 (08:38→17:00)
[2019-12-30] MEDS: DILTIAZEM HCL CD 180 MG CAP.SR.24H PO SCH (08:38)
[2019-12-30] MEDS: GABAPENTIN 300 MG CAPSULE PO SCH ×3 (08:38→17:37)
[2019-12-30] MEDS: POLYVINYL ALCOHOL OPHT DROPS 15 ML BOTTLE EACHEYE PRN (08:39)
[2019-12-30] MEDS: diphenhydrAMINE 25 MG CAP PO PRN ×2 (08:41→20:57)
[2019-12-30] MEDS: MAG HYDROX/AL HYDROX/SIMETH 30 ML LIQUID UDC PO PRN ×2 (08:42→21:18)
[2019-12-30] MEDS: diphenhydrAMINE 1% CREAM 28.3 GM TUBE TP PRN (11:48)
[2019-12-30 16:00] VITALS: BP 143/83
--- NOTE | 2019-12-30 16:11 | NUR ---
Gps/Relay Mechanic- Called for respiratory Tx , Ext # [id number] , left message twice, per pt. no tx was given . Called [phone] , spoke to RT. informed of patient's request for HHN.
[2019-12-30] MEDS: ALBUTEROL SULFATE 2.5 MG/3 ML NEBU NEB PRN (16:17)
--- NOTE | 2019-12-30 17:44 | NUR ---
Gps/Research And Development Researcher- Stayed in the activity room most of the day. Had breathing treatment as requested, adequate 02 sat. Showered self today after set up. Gets needy and anxious , redirectable.
[2019-12-30] MEDS: LORAZEPAM 1 MG TABLET PO PRN (18:27)
[2019-12-30] MEDS: QUETIAPINE FUMARATE 200 MG TABLET PO SCH (20:56)
[2019-12-30] MEDS: DOCUSATE SODIUM 100 MG CAPSULE PO SCH (20:56)
[2019-12-30] MEDS: ATORVASTATIN 20 MG TABLET PO SCH (20:57)
[2019-12-30 21:17] VITALS: BP 139/88
--- NOTE | 2019-12-30 23:20 | NUR ---
RECEIVED PATIENT IN ACTIVITY ROOM INTERACTING WITH HER PEERS. SHE APPEARS EASILY IRRITABLE AND NEEDY. FREQUENTLY REQUESTS FOR ONE MEDICATION OR THE OTHER FOR VARIOUS AILMENTS.MOOD IS LABILE.HOWEVER DENIES SI/HI AND IS MED COMPLIANT.SAFE ENVIRONMENT PROVIDED. WILL CONTINUE TO MONITOR.
[2019-12-31] MEDS: LEVOTHYROXINE SODIUM 25 MCG TABLET PO SCH (06:29)
[2019-12-31 07:30] VITALS: BP 143/77
[2019-12-31] MEDS: DILTIAZEM HCL CD 180 MG CAP.SR.24H PO SCH (08:24)
[2019-12-31] MEDS: VENLAFAXINE XR 75 MG TAB.ER.24H PO SCH (08:24)
[2019-12-31] MEDS: GABAPENTIN 300 MG CAPSULE PO SCH ×3 (08:24→17:30)
[2019-12-31] MEDS: CHOLESTYRAMINE/ASPARTAME 4 G/PKT PACKET PO SCH ×2 (08:25→17:00)
[2019-12-31] MEDS: FLUTICASONE/VILANTEROL 1 EACH BLST.W.DEV INH SCH (08:25)
[2019-12-31] MEDS: POLYVINYL ALCOHOL OPHT DROPS 15 ML BOTTLE EACHEYE PRN ×2 (08:25→14:22)
[2019-12-31] MEDS: LORAZEPAM 1 MG TABLET PO PRN (14:20)
[2019-12-31] MEDS: ACETAMINOPHEN 325 MG TABLET PO PRN (14:20)
[2019-12-31 16:00] VITALS: BP 134/86
--- NOTE | 2019-12-31 16:46 | NUR ---
Gps/Feltmaker And Weigher- Interacting with peers, stayed in the activity room most of the time. Requested ativan 1 mg for anxiety as well as tylenol, 650 mg po verbalized some relief of her back/neck discomfort.
--- NOTE | 2019-12-31 18:25 | NUR ---
Gps/Game Trapper- Patient requesting for breathing treatment, no respiratory distress noted, adequate 02 sat. @ 96% room air, called R.T. was notified of patient's request.
[2019-12-31] MEDS: MAG HYDROX/AL HYDROX/SIMETH 30 ML LIQUID UDC PO PRN (18:58)
[2019-12-31 20:00] VITALS: BP 146/82
[2019-12-31] MEDS: ALBUTEROL SULFATE 2.5 MG/3 ML NEBU NEB PRN (20:16)
[2019-12-31] MEDS: QUETIAPINE FUMARATE 200 MG TABLET PO SCH (21:04)
[2019-12-31] MEDS: DOCUSATE SODIUM 100 MG CAPSULE PO SCH (21:04)
[2019-12-31] MEDS: ATORVASTATIN 20 MG TABLET PO SCH (21:04)
[2019-12-31] MEDS: diphenhydrAMINE 25 MG CAP PO PRN (21:10)
--- NOTE | 2019-12-31 23:54 | NUR ---
RECEIVED PATIENT IN ACTIVITY ROOM INTERACTING WITH HER PEERS. EASILY IRRITABLE. KEPT COMING TO ASK WHEN SHE WILL RECEIVE HER BREATHING TREATMENT.REASSURED HER.BREATHING TREATMENT GIVEN AT 20;00 WITH GOOD EFFECT. ALSO REQUESTS FOR ONE MEDICATION OR THE OTHER FOR VARIOUS AILMENTS. MOOD IS LABILE.HOWEVER DENIES SI/HI AND IS MED COMPLIANT.SAFE ENVIRONMENT PROVIDED. WILL CONTINUE TO MONITOR.
[2020-01-01] MEDS: LEVOTHYROXINE SODIUM 25 MCG TABLET PO SCH (06:21)
--- NOTE | 2020-01-01 06:33 | NUR ---
SLEPT FOR APPROX.07;00 HOURS.
[2020-01-01 08:15] VITALS: BP 129/58
[2020-01-01] MEDS: DILTIAZEM HCL CD 180 MG CAP.SR.24H PO SCH (08:15)
[2020-01-01] MEDS: VENLAFAXINE XR 75 MG TAB.ER.24H PO SCH (08:15)
[2020-01-01] MEDS: FLUTICASONE/VILANTEROL 1 EACH BLST.W.DEV INH SCH (08:15)
[2020-01-01] MEDS: GABAPENTIN 300 MG CAPSULE PO SCH (08:16)
[2020-01-01] MEDS: POLYVINYL ALCOHOL OPHT DROPS 15 ML BOTTLE EACHEYE PRN (08:16)
[2020-01-01] MEDS: diphenhydrAMINE 25 MG CAP PO PRN (08:19)
[2020-01-01] MEDS: CHOLESTYRAMINE/ASPARTAME 4 G/PKT PACKET PO SCH (08:19)
[2020-01-01] MEDS: LORAZEPAM 1 MG TABLET PO PRN (08:19)
--- NOTE | 2020-01-01 09:01 | NUR ---
SW Discharge Note: Patient will be discharged back to her Board and Care Facility [address] [address] ([phone]). Patient will be provided transportation by [facility] via [employer] at 12pm. Patient presents alert and oriented times 4. Patient denies suicidal or homicidal ideation. Patient is aware and agreeable with discharge plans. Patient presents with appropriate mood and congruent affect at the time of discharge. Patient will be following up with her primary care physician Dr. Shepherd [address] [place] [address] ([phone]) and has an appointment scheduled on January 08, 2020 at 10:45am. Patient is referred for outpatient psychiatric services at [address] [address] ([phone]) and has an appointment scheduled on Friday January 03, 2020 at 12PM, patient will be meeting with a rn case management and assigned a psychiatrist upon evaluation. Patient was provided with a brief substance abuse intervention and referred to [facility] [address] [place] [address] ([phone]); [facility] [place] [facility] [place] [facility] [address], [address], [place] [address] ([phone]); [facility] ([phone]); [facility] ([phone]); [facility] ([phone]); and National Suicide Prevention Lifeline ([phone]).
[2020-01-01] MEDS: ALBUTEROL SULFATE 2.5 MG/3 ML NEBU NEB PRN (10:10)
[2020-01-01] MEDS: MAG HYDROX/AL HYDROX/SIMETH 30 ML LIQUID UDC PO PRN (11:07)
--- NOTE | 2020-01-01 13:13 | NUR ---
Patient discharged to [facility] and care facility. Instructions given about follow up appointments. Prescriptions called to patients pharmacy, plus hard copy given to patient. All belongings sent with patient. Patient verbalized understanding of the instructions. VS are stable, am medications given, no SI or HI noted at the time of discharge
== END 2020-01-01 12:30 | DRG 885 ==
LOC: ER 14:27 → GPS 18:30
PROVIDERS: ADMIT Psychiatry & Neurology Psychiatry; ATTEND Internal Medicine
DX: F33.3 Major depressive disorder, recurrent, severe with psychotic symptoms (principal); E87.1 Hypo-osmolality and hyponatremia; N39.0 Urinary tract infection, site not specified; R45.851 Suicidal ideations; G89.29 Other chronic pain; I10 Essential (primary) hypertension; I25.2 Old myocardial infarction; K21.9 Gastro-esophageal reflux disease without esophagitis; K59.00 Constipation, unspecified; M79.7 Fibromyalgia; Z87.01 Personal history of pneumonia (recurrent); Z87.891 Personal history of nicotine dependence; Z90.49 Acquired absence of other specified parts of digestive tract; F43.10 Post-traumatic stress disorder, unspecified; M19.90 Unspecified osteoarthritis, unspecified site; J44.9 Chronic obstructive pulmonary disease, unspecified; R53.1 Weakness; E66.01 Morbid (severe) obesity due to excess calories; G30.9 Alzheimer's disease, unspecified; F02.80 Dementia in other diseases classified elsewhere, unspecified severity, without behavioral disturbance, psychotic disturbance, mood disturbance, and anxiety; Z90.3 Acquired absence of stomach [part of]
CPT/HCPCS: 36415; 71045; 82652; 83735; 84100; 84443; 85025; 87086; 93005; 94640; 94664; J3535; Q0163